=== PATIENT | male | born 1995 | race Hispanic/Latino ===

== ENCOUNTER 2017-09-28 21:18 | Emergency (ER) | payer OTHER ==
[2017-09-28 21:46] VITALS: BP 96/49; PULSE 54; RESP 16; TEMP 98.3; O2SAT 99
--- NOTE | 2017-09-28 22:07 | ED PDOC ---
HPI: Eye Injury/Pain Time Seen by Provider: 09/28/17 22:05 Chief Complaint (Nursing): Eye Problem Chief Complaint (Provider): EYELID SWELLING History Per: Patient (22 Y/O MALE HERE WITH RIGHT EYELID SWELLING TODAY OVER 12HOURS. DENIES ANY FEVERS/CHILLS. DENIES ANY PRIOR HISTORY OF SIMILAR AILMENT. ) Past Medical History Reviewed: Historical Data, Nursing Documentation, Vital Signs Vital Signs: Last Vital Signs Temp 98.3 F 09/28/17 21:43 Pulse 54 L 09/28/17 21:43 Resp 16 09/28/17 21:43 BP 96/49 L 09/28/17 21:43 Pulse Ox 99 09/28/17 21:43 - Family History Family History: States: No Known Family Hx - Home Medications Home Medications: Ambulatory Orders Medication Instructions Recorded Cephalexin [Keflex] 500 mg PO TID #21 capsule 09/28/17 - Allergies Allergies/Adverse Reactions: Allergies Allergy/AdvReac Type Severity Reaction Status Date / Time No Known Allergies Allergy Verified 09/28/17 21:42 Review of Systems ROS Statement: Except As Marked, All Systems Reviewed And Found Negative Eyes: Positive for: Other (SWELLING BELOW RIGHT EYEBROW) Physical Exam - Reviewed Nursing Documentation Reviewed: Yes Vital Signs Reviewed: Yes - Physical Exam Appears: Positive for: Well, Non-toxic, No Acute Distress Head Exam: Positive for: ATRAUMATIC, NORMAL INSPECTION, NORMOCEPHALIC Skin: Positive for: Warm. Negative for: Normal Color (1.0CM SWELLING BELOW RIGHT EYEBROW) Eye Exam: Positive for: EOMI, Normal appearance, PERRL ENT: Positive for: Normal ENT Inspection Neck: Positive for: Normal, Painless ROM Cardiovascular/Chest: Positive for: Regular Rate, Rhythm Respiratory: Positive for: CNT, Normal Breath Sounds Gastrointestinal/Abdominal: Positive for: Normal Exam, Soft Back: Positive for: Normal Inspection Extremity: Positive for: Normal ROM Neurologic/Psych: Positive for: Alert, Oriented - ECG O2 Sat by Pulse Oximetry: 99 Disposition - Clinical Impression Clinical Impression: Cyst - Patient ED Disposition Is Patient to be Admitted: No - Disposition Referrals: Antonio Burnham MD [Staff Provider] - Disposition: Routine/Home Disposition Time: 22:08 Condition: FAIR Additional Instructions: PLEASE APPLY WARM COMPRESSES AND RETURN IN 2 DAYS FOR EVALUATION. Prescriptions: Cephalexin [Keflex] 500 mg PO TID #21 capsule Instructions: Jak DING)
== END 2017-09-28 23:04 | disposition home or self-care (01) ==
LOC: H.ER 21:18
DX: L72.3 Sebaceous cyst (principal)